=== PATIENT | male | born 2000 | race Hispanic/Latino ===

== ENCOUNTER 2022-07-04 19:41 | Emergency (ER) | payer OTHER ==
[~2022-07-04] VITALS: Ht 175.3 cm; Wt 61.2 kg
[2022-07-04 21:26] VITALS: BP 117/62
[2022-07-04] MEDS ORDERED: IBUPROFEN 600 MG TABLET PO SCH (21:30)
[2022-07-04] MEDS ORDERED: IBUPROFEN 600 MG TABLET ONE (21:30)
[2022-07-04] MEDS ORDERED: IBUP-2070 PO (22:27)
== END 2022-07-04 22:58 | disposition home or self-care (01) ==
LOC: EDH 19:41
DX: S00.33XA Contusion of nose, initial encounter (principal); S09.90XA Unspecified injury of head, initial encounter; Z79.1 Long term (current) use of non-steroidal anti-inflammatories (NSAID); W03.XXXA Other fall on same level due to collision with another person, initial encounter; Y93.89 Activity, other specified; Y92.89 Other specified places as the place of occurrence of the external cause; Y99.8 Other external cause status
CPT/HCPCS: 70160

== ENCOUNTER 2022-08-25 11:16 | Emergency (ER) | payer OTHER ==
[~2022-08-25] VITALS: Ht 175.3 cm; Wt 63.5 kg
[~2022-08-25 11:16] MED LIST: IBUP-2070 PO
[2022-08-25] MEDS ORDERED: AMOX500C2 PO (11:33)
[2022-08-25 13:16] VITALS: BP 122/66
== END 2022-08-25 13:17 | disposition home or self-care (01) ==
LOC: EDH 11:16
DX: K04.7 Periapical abscess without sinus (principal); Z88.6 Allergy status to analgesic agent